=== PATIENT | female | born 1995 | race Caucasian/White ===

== ENCOUNTER 2016-11-11 14:49 | Outpatient (CLI) | payer OTHER ==
[2016-11-11 16:32] LABS: #Eosinphils 0.1 thou/uL (0.0-0.7); #Lymphocytes 3.1 thou/uL (1.20-3.40); #Monocytes 0.9 thou/uL (0.11-0.59); #Neutrophils 5.6 thou/uL (1.40-6.50); %Basophils 0.5 % (0.0-1.0); %Eosinophils 0.7 % (0.0-10.0); %Lymphocytes 31.8 % (21.0-51.0); Hemoglobin 14.8 g/dL (12.0-16.0); Mean Corpuscular HGB CONC 32.7 g/dL (32.0-36.0); Mean Corpuscular Hemoglobin 29.5 pg (27.0-31.0); Mean Corpuscular Volume 90.4 fl (81.0-99.0); Mean Platelet Volume 10.9 fL (7.4-10.4); Platelet Count 276 thou/uL (130-400); RBC Distribution Width 12.1 % (11.5-14.5); Red Blood Cell (RBC) Count 5.01 mill/uL (4.20-5.40); White Blood Cell (WBC) Count 9.7 thou/uL (4.8-10.8)
[2016-11-11 20:06] LABS: Hemoglobin A1c 9.2 % (4.0-6.0)
[2016-11-11 20:15] LABS: ALT (SGPT) 11 U/L (8-55); AST (SGOT) 12 U/L (5-34); Albumin 4.6 g/dL (3.5-5.0); Alkaline Phosphatase 92 U/L (40-150); Anion Gap 17 mmol/L (10-20); BUN (Urea Nitrogen) 7 mg/dL (7.0-18.7); Bilirubin, Total 0.5 mg/dL (0.2-1.2); Calc. Creatinine Clearance 0 mL/min (70-130); Calcium 9.6 mg/dL (7.8-10.44); Carbon Dioxide 22 mmol/L (22-29); Chloride 108 mmol/L (98-107); Estimated GFR-MDRD Greater than 90; Globulin 2.9 g/dL (2.4-3.5); Potassium 3.8 mmol/L (3.5-5.1); Protein, Total 7.5 g/dL (6.0-8.3); Sodium 143 mmol/L (136-145)
[2016-11-11 21:01] LABS: Glucose 40 mg/dL (70-105)
== END 2016-11-11 14:50 ==
LOC: HPCALD 14:49
PROVIDERS: ATTEND Physician Assistant
DX: E10.9 Type 1 diabetes mellitus without complications (principal)
CPT/HCPCS: 36415; 80053; 83036; 84443; 85025

== ENCOUNTER 2018-03-30 19:35 | Emergency (ER) | payer OTHER ==
[2018-03-30] MEDS ORDERED: Ibuprofen 800 MG TAB ONE (20:06)
[2018-03-30] MEDS ORDERED: HYDROcodone/Acetaminophen 10/325 mg Tablet ONE (20:06)
--- NOTE | 2018-03-30 21:48 | RAD ---
RIGHT HAND THREE VIEWS: 03/30/18 No fracture was seen. The third digit appeared intact as did the carpals and metacarpals. IMPRESSION: No acute finding. POS: HOME
== END 2018-03-30 20:08 | disposition home or self-care (01) ==
LOC: BURERS 19:35
DX: S60.021A Contusion of right index finger without damage to nail, initial encounter (principal); S60.031A Contusion of right middle finger without damage to nail, initial encounter; S60.041A Contusion of right ring finger without damage to nail, initial encounter; E11.9 Type 2 diabetes mellitus without complications; Z79.4 Long term (current) use of insulin; W23.0XXA Caught, crushed, jammed, or pinched between moving objects, initial encounter

== ENCOUNTER 2019-11-04 18:13 | Emergency (ER) | payer OTHER ==
[2019-11-04] MEDS ORDERED: cefTRIAXone\\ROCEPHIN 1 GM VIAL ONE (19:02)
[2019-11-04] MEDS ORDERED: Lidocaine 1% PF 5 ML VIAL ONE (19:02)
[2019-11-04] MEDS ORDERED: Azithromycin 250 MG TAB ONE (19:02)
[2019-11-04] MEDS ORDERED: Ketorolac Tromethamine 30 MG/ML VIAL ONE (19:04)
[2019-11-06 23:11] LABS: Chlamydia by PCR Not Detected (NotDetected); GC by PCR Not Detected (NotDetected)
== END 2019-11-04 19:33 | disposition home or self-care (01) ==
LOC: BURERS 18:13
DX: N73.9 Female pelvic inflammatory disease, unspecified (principal); E10.9 Type 1 diabetes mellitus without complications; Z79.899 Other long term (current) drug therapy
CPT/HCPCS: 87480; 87491; 87510; 87591; 87660; 96372; 99283; J0696; J1885; J2001

== ENCOUNTER 2022-03-22 09:33 | Emergency (ER) | payer OTHER ==
[2022-03-22] MEDS ORDERED: Ibuprofen 200 MG TAB ONE (09:56)
[2022-03-22] MEDS ORDERED: HYDROcodone/Acetaminophen 5/325 mg Tablet ONE (10:32)
[2022-03-22] MEDS ORDERED: diphenhydrAMINE 25 MG CAP ONE (10:33)
== END 2022-03-22 10:41 | disposition home or self-care (01) ==
LOC: BURERS 09:33
DX: S93.401A Sprain of unspecified ligament of right ankle, initial encounter (principal); E10.9 Type 1 diabetes mellitus without complications; W22.09XA Striking against other stationary object, initial encounter

== ENCOUNTER 2025-06-16 09:25 | Outpatient (CLI) | payer OTHER | END 2025-06-16 09:26 | disposition home or self-care (01) | LOC: BURRAD 09:25 | PROVIDERS: ATTEND Physician Assistant | DX: M54.50 Low back pain, unspecified (principal); M54.6 Pain in thoracic spine; M47.814 Spondylosis without myelopathy or radiculopathy, thoracic region | CPT/HCPCS: 72070; 72100 ==